=== PATIENT | male | born 1940 | race Caucasian/White ===

== ENCOUNTER 2017-11-03 15:53 | Emergency (ER) | payer MEDICARE ==
[2017-11-03 17:01] LABS: BASOPHILS 0.3 % (0-2); EOSINOPHILS 1.1 % (0-7); HEMATOCRIT 47.8 % (42.0-54.0); HEMOGLOBIN 16.5 g/dL (13.5-17.5); IMMATURE GRANULOCYTES 0.3 % (0-5); MCH 33.5 pg (26.0-34.0); MCHC 34.5 g/dL (31.0-37.0); MEAN PLATELET VOLUME 9.9 fL (7.4-10.4); MONOCYTES 7.1 % (2-11); NEUTROPHILS 57.2 % (40-80); PLATELET COUNT 224 10x3/uL (130-400); RBC 4.93 10x6/uL (4.20-6.10); RDW 12.1 % (11.5-14.5); WBC 9.2 10x3/uL (4.8-10.8)
[2017-11-03 17:15] LABS: ALBUMIN 3.9 g/dL (3.4-5.0); ANION GAP 11.5 mmol/L (8-16); BILIRUBIN - TOTAL 0.6 mg/dL (0.2-1.3); CALCIUM 9.3 mg/dL (8.5-10.1); CARBON DIOXIDE 30.1 mmol/L (21.0-32.0); CREATININE - SERUM 1.2 mg/dL (0.6-1.3); POTASSIUM - SERUM 4.6 mmol/L (3.5-5.1); PROTEIN - SERUM 7.8 g/dL (6.4-8.2)
[2017-11-03 19:19] LABS: APPEARANCE CLEAR (CLEAR); COLOR YELLOW (YELLOW); NITRITE NEGATIVE (NEGATIVE)
[2017-11-03 19:22] LABS: BILIRUBIN NEGATIVE (NEGATIVE); GLUCOSE NEGATIVE (NEGATIVE); KETONE NEGATIVE (NEGATIVE); PROTEIN 2+ mg/dL (NEGATIVE); UROBILINOGEN NORMAL (NORMAL)
[2017-11-03 19:23] LABS: RED CELLS - URINE OCC /hpf (0-5)
[2017-11-03 19:24] LABS: BACTERIA FEW /hpf (NONE SEEN)
[2017-11-14] MEDS ORDERED: LIPITOR20 MG PO (16:32)
[2017-11-14] MEDS ORDERED: GLIMEPIRIDE2 MG PO (16:33)
[2017-11-14] MEDS ORDERED: PRINIVIL20 MG PO (16:33)
[2017-11-14] MEDS ORDERED: XANAX1 MG PO (16:34)
[2017-11-16 11:05] VITALS: BMI 27.8
== END 2017-11-03 20:36 | disposition home or self-care (01) ==
LOC: D.ER 15:53
PROVIDERS: Family Medicine; Physician Assistant Medical
DX: K80.50 Calculus of bile duct without cholangitis or cholecystitis without obstruction (principal); E11.9 Type 2 diabetes mellitus without complications; I10 Essential (primary) hypertension; F17.200 Nicotine dependence, unspecified, uncomplicated

== ENCOUNTER → 2017-11-06 15:35 | Outpatient (CLI) | payer MEDICARE ==
[~2017-11-06 15:35] MED LIST: GLIMEPIRIDE2 MG PO; HYDROCODON-ACE1 EAC7 PO; LIPITOR20 MG PO; PRINIVIL20 MG PO; XANAX1 MG PO
[2017-11-08 10:19] LABS: ALPHA FETOPROTEIN -(TUMOR MRK) 1.9 ng/mL (0.0-8.3); CA 19-9 38 U/mL (0-35)
[2017-11-08 14:20] LABS: HEPATITIS C ANTIBODY <0.1 (0.0-0.9)
[2017-11-16 11:05] VITALS: BMI 27.8
== END | disposition home or self-care (01) ==
LOC: D.LAB 15:15
PROVIDERS: Surgery
DX: R16.0 Hepatomegaly, not elsewhere classified (principal); K85.90 Acute pancreatitis without necrosis or infection, unspecified; C22.9 Malignant neoplasm of liver, not specified as primary or secondary; C25.0 Malignant neoplasm of head of pancreas; R10.9 Unspecified abdominal pain

== ENCOUNTER → 2017-11-08 08:26 | Outpatient (CLI) | payer MEDICARE ==
[2017-11-08 08:58] LABS: CREATININE - SERUM 1.4 mg/dL (0.6-1.3)
[2017-11-16 11:05] VITALS: BMI 27.8
== END | disposition home or self-care (01) ==
LOC: D.LAB 08:26 → D.MRI 11-09 10:00
PROVIDERS: Surgery
DX: R16.0 Hepatomegaly, not elsewhere classified (principal)

== ENCOUNTER 2017-11-16 09:05 | Day surgery (SDC) | payer MEDICARE ==
[~2017-11-16] VITALS: Ht 177.8 cm; Wt 88.0 kg
[~2017-11-16 09:05] MED LIST changes: -HYDROCODON-ACE1 EAC7 PO
[2017-11-16 11:05] VITALS: BP 136/68; Ht 177.8 cm; Wt 88.0 kg
[2017-11-16 11:05] LABS: HEMATOCRIT 47.7 % (42.0-54.0); HEMOGLOBIN 16.4 g/dL (13.5-17.5); MCHC 34.4 g/dL (31.0-37.0); MEAN PLATELET VOLUME 9.9 fL (7.4-10.4); RBC 4.97 10x6/uL (4.20-6.10); RDW 12.1 % (11.5-14.5); WBC 8.4 10x3/uL (4.8-10.8)
[2017-11-16 11:32] LABS: ANION GAP 12.4 mmol/L (8-16); CALCIUM 9.1 mg/dL (8.5-10.1); CARBON DIOXIDE 26.3 mmol/L (21.0-32.0); CREATININE - SERUM 1.3 mg/dL (0.6-1.3); POTASSIUM - SERUM 4.7 mmol/L (3.5-5.1)
[2017-11-16] MEDS ORDERED: HYDROCODON-ACE1 EAC7 PO (13:25)
--- NOTE | 2017-11-16 17:22 | NUR ---
1515--PT UNABLE TO VOID, ICE WATER REFILLED. WILL CONTINUE TO MONITOR. DIMAS SHAFFER 1600--PT VOIDS, IV DC'D. DIMAS SHAFFER 1620--DISCHARGE INSTRUCTIONS GIVEN, PT VERBALIZES UNDERSTANDING. PT OFF UNIT VIA WC. DIMAS SHAFFER
== END 2017-11-16 16:20 | disposition home or self-care (01) ==
LOC: D.OPS 09:05 → D.PAN 12:00 → D.OPS 16:20
PROVIDERS: Anesthesiology
DX: K80.20 Calculus of gallbladder without cholecystitis without obstruction (principal); I10 Essential (primary) hypertension; E11.9 Type 2 diabetes mellitus without complications; F17.200 Nicotine dependence, unspecified, uncomplicated; Z01.812 Encounter for preprocedural laboratory examination